=== PATIENT | female | born 1985 | race African-American/Black ===

== ENCOUNTER → 2020-03-23 | Outpatient (CLI) | payer OTHER ==
[~2020-03-23] MED LIST: NIFE-64 PO; OMEP10 PO
[2020-03-23 19:45] LABS: EOSINOPHILS % (AUTO) 1.6 % (1.0-6.0); HEMATOCRIT 40.4 % (36-46); HEMOGLOBIN 13.5 g/dL (12.0-16.0); LYMPHOCYTES # (AUTO) 2.7 K/uL (1.0-4.8); LYMPHOCYTES % (AUTO) 42.8 % (22.0-44.0); MEAN CORPUSCULAR HEMOGLOBIN 29.8 pg (26.0-34.0); MEAN CORPUSCULAR HGB CONC 33.4 G/dL (31.0-37.0); MEAN CORPUSCULAR VOLUME 89 fL (80-100); MONOCYTES # (AUTO) 0.3 K/uL (0.1-1.0); MONOCYTES % (AUTO) 4.8 % (2.0-9.0); NEUTROPHILS # (AUTO) 3.2 K/uL (1.8-7.7); NEUTROPHILS % (AUTO) 49.8 % (40.0-70.0); PLATELET COUNT (AUTO) 363 K/uL (150-450); RED BLOOD CELL COUNT(AUTO) 4.53 MIL/uL (4.00-5.20); RED CELL DISTRIBUTION WIDTH 13.9 % (11.5-14.5)
[2020-03-23 20:22] LABS: ALANINE AMINOTRANSFERASE 45 U/L (12-78); ALBUMIN 4.6 g/dL (3.4-5.0); ALKALINE PHOSPHATASE 87 U/L (46-116); ANION GAP 6 mmol/L (8-16); ASPARTATE AMINOTRANSFERASE 21 U/L (15-37); BILIRUBIN,TOTAL 0.3 mg/dL (0.1-1.0); CALCIUM, TOTAL 9.8 mg/dL (8.8-10.5); CARBON DIOXIDE 26 mmol/L (22-29); CHLORIDE 99 mmol/L (98-107); CREATININE 0.97 mg/dL (0.60-1.30); GLOMERULAR FILTR. RATE CALC > 60 mL/min (>60); GLUCOSE,RANDOM 128 mg/dL (70-110); HCG,QUANTITATIVE < 1 mIU/mL (0-6); POTASSIUM 3.8 mmol/L (3.5-5.1); SODIUM SERUM 131 mmol/L (136-145); THYROID STIMULATING HORMONE 1.75 uIU/mL (0.36-3.74); TOTAL PROTEIN, SERUM 9.2 g/dL (6.4-8.2)
[2020-03-23 20:39] LABS: UREA NITROGEN, BLOOD 13 mg/dL (7-18)
== END | disposition home or self-care (01) ==
LOC: PUC 19:02
DX: R00.0 Tachycardia, unspecified (principal)
CPT/HCPCS: 84436; 84443

== ENCOUNTER 2020-03-24 21:36 | Emergency (ER) | payer OTHER ==
[~2020-03-24] VITALS: Ht 149.9 cm; Wt 66.4 kg
[2020-03-24] MEDS ORDERED: NIFE-64 PO (21:56)
[2020-03-24] MEDS ORDERED: OMEP10 PO (21:56)
[2020-03-25 00:46] LABS: BASOPHILS % (AUTO) 1.1 % (0.0-2.0); EOSINOPHILS % (AUTO) 0.7 % (1.0-6.0); HEMATOCRIT 37.5 % (36-46); HEMOGLOBIN 12.4 g/dL (12.0-16.0); LYMPHOCYTES # (AUTO) 3.3 K/uL (1.0-4.8); MEAN CORPUSCULAR HEMOGLOBIN 29.7 pg (26.0-34.0); MEAN CORPUSCULAR HGB CONC 33.2 G/dL (31.0-37.0); MEAN CORPUSCULAR VOLUME 90 fL (80-100); MONOCYTES # (AUTO) 0.3 K/uL (0.1-1.0); MONOCYTES % (AUTO) 4.2 % (2.0-9.0); NEUTROPHILS # (AUTO) 3.2 K/uL (1.8-7.7); PLATELET COUNT (AUTO) 365 K/uL (150-450); RED BLOOD CELL COUNT(AUTO) 4.18 MIL/uL (4.00-5.20); RED CELL DISTRIBUTION WIDTH 13.8 % (11.5-14.5)
[2020-03-25 00:57] LABS: ANION GAP 8 mmol/L (8-16); CALCIUM, TOTAL 10.2 mg/dL (8.8-10.5); CARBON DIOXIDE 29 mmol/L (22-29); CHLORIDE 102 mmol/L (98-107); CREATININE 0.94 mg/dL (0.60-1.30); GLOMERULAR FILTR. RATE CALC > 60 mL/min (>60); GLUCOSE,RANDOM 114 mg/dL (70-110); POTASSIUM 4.4 mmol/L (3.5-5.1); SODIUM SERUM 139 mmol/L (136-145); UREA NITROGEN, BLOOD 15 mg/dL (7-18)
[2020-03-25] MEDS ORDERED: LORazepam 1 MG TABLET PO ONE (01:00)
[2020-03-25 01:05] VITALS: BP 108/74
[2020-03-25 01:12] LABS: ALANINE AMINOTRANSFERASE 40 U/L (12-78); ALBUMIN 4.1 g/dL (3.4-5.0); ALKALINE PHOSPHATASE 75 U/L (46-116); ASPARTATE AMINOTRANSFERASE 19 U/L (15-37); BILIRUBIN,TOTAL 0.2 mg/dL (0.1-1.0); HCG,QUANTITATIVE < 1 mIU/mL (0-6); THYROID STIMULATING HORMONE 2.26 uIU/mL (0.36-3.74); TOTAL PROTEIN, SERUM 8.2 g/dL (6.4-8.2)
== END 2020-03-25 01:49 | disposition home or self-care (01) ==
LOC: EDUNIT# 21:36 → EMS 21:47
DX: R00.2 Palpitations (principal); I10 Essential (primary) hypertension; Z88.2 Allergy status to sulfonamides; Z88.0 Allergy status to penicillin; Z88.8 Allergy status to other drugs, medicaments and biological substances
CPT/HCPCS: 84443; 93005

== ENCOUNTER 2022-02-19 20:44 | Emergency (ER) | payer OTHER ==
[~2022-02-19] VITALS: Ht 149.9 cm; Wt 65.0 kg
[2022-02-19] MEDS ORDERED: PRED1 PO (21:02)
[2022-02-19] MEDS ORDERED: CARV3 PO (21:02)
[2022-02-19] MEDS ORDERED: METF-1211 PO (21:02)
[2022-02-19] MEDS ORDERED: DOXYCYCLINE HYCLATE 100 MG TABLET PO ONE (22:00)
[2022-02-19] MEDS ORDERED: BACITRACIN 0.9 GM PACKET OINTMENT TP ONE (22:00)
[2022-02-19] MEDS ORDERED: DOXY-354 PO (22:26)
[2022-02-19 22:30] VITALS: BP 132/74
== END 2022-02-19 23:00 | disposition home or self-care (01) ==
LOC: EMS 20:54
DX: L73.2 Hidradenitis suppurativa (principal); I10 Essential (primary) hypertension; K21.9 Gastro-esophageal reflux disease without esophagitis; Z88.0 Allergy status to penicillin; Z88.2 Allergy status to sulfonamides; Z88.5 Allergy status to narcotic agent; Z79.899 Other long term (current) drug therapy
CPT/HCPCS: 99284; Z7502; Z7610

== ENCOUNTER 2022-03-01 00:52 | Emergency (ER) | payer OTHER ==
[~2022-03-01] VITALS: Ht 149.9 cm; Wt 60.3 kg
[~2022-03-01 00:52] MED LIST changes: +CARV3 PO; +DOXY-354 PO; +METF-1211 PO; +PRED1 PO
[2022-03-01 01:39] LABS: BASOPHILS % (AUTO) 0.4 % (0.0-2.0); EOSINOPHILS % (AUTO) 0.3 % (1.0-6.0); HEMATOCRIT 31.9 % (36-46); HEMOGLOBIN 10.5 g/dL (12.0-16.0); LYMPHOCYTES # (AUTO) 3.6 K/uL (1.0-4.8); LYMPHOCYTES % (AUTO) 30.2 % (22.0-44.0); MEAN CORPUSCULAR HEMOGLOBIN 27.9 pg (26.0-34.0); MEAN CORPUSCULAR VOLUME 85 fL (80-100); MONOCYTES # (AUTO) 0.8 K/uL (0.1-1.0); MONOCYTES % (AUTO) 6.9 % (2.0-9.0); NEUTROPHILS # (AUTO) 7.4 K/uL (1.8-7.7); NEUTROPHILS % (AUTO) 62.2 % (40.0-70.0); PLATELET COUNT (AUTO) 351 K/uL (150-450); RED BLOOD CELL COUNT(AUTO) 3.77 MIL/uL (4.00-5.20); RED CELL DISTRIBUTION WIDTH 15.8 % (11.5-14.5)
[2022-03-01 01:46] LABS: GLUCOMETER DEV NAME(LOC) ERT.5; GLUCOSE,POINT OF CARE 114 MG/DL (70-110)
[2022-03-01 01:49] LABS: ANION GAP 6 mmol/L (8-16); CALCIUM, TOTAL 8.8 mg/dL (8.8-10.5); CARBON DIOXIDE 32 mmol/L (22-29); CHLORIDE 102 mmol/L (98-107); CREATININE 0.77 mg/dL (0.60-1.30); GLOMERULAR FILTR. RATE CALC > 60 mL/min (>60); GLUCOSE,RANDOM 123 mg/dL (70-110); POTASSIUM 4.3 mmol/L (3.5-5.1); SODIUM SERUM 140 mmol/L (136-145); UREA NITROGEN, BLOOD 18 mg/dL (7-18)
[2022-03-01 02:00] LABS: ALANINE AMINOTRANSFERASE 35 U/L (12-78); ALKALINE PHOSPHATASE 70 U/L (46-116); ASPARTATE AMINOTRANSFERASE 13 U/L (15-37); BILIRUBIN,TOTAL 0.2 mg/dL (0.1-1.0); HCG,QUANTITATIVE < 1 mIU/mL (0-6); PHOSPHORUS 2.3 mg/dL (2.5-4.9); TOTAL PROTEIN, SERUM 7.1 g/dL (6.4-8.2)
[2022-03-01] MEDS ORDERED: SODIUM,POTASSIUM PHOSPHATES POWDER PACKET PO ONE (02:15)
[2022-03-01 03:29] VITALS: BP 124/76
== END 2022-03-01 03:34 | disposition home or self-care (01) ==
LOC: EMS 00:52
DX: R00.2 Palpitations (principal); K21.9 Gastro-esophageal reflux disease without esophagitis; I10 Essential (primary) hypertension; Z88.0 Allergy status to penicillin; Z88.1 Allergy status to other antibiotic agents; Z79.84 Long term (current) use of oral hypoglycemic drugs
CPT/HCPCS: 80053; 82962; 83735; 84100; 84484; 84702; 85025; 93005; 99284

== ENCOUNTER 2022-03-04 13:59 | Emergency (ER) | payer OTHER ==
[~2022-03-04] VITALS: Ht 149.9 cm; Wt 60.0 kg
[2022-03-04] MEDS ORDERED: ISOT30CA14 PO (14:01)
[2022-03-04 16:20] VITALS: BP 120/75
== END 2022-03-04 16:37 | disposition home or self-care (01) ==
LOC: EMS 14:02
DX: R04.0 Epistaxis (principal); R05.9 Cough, unspecified; I10 Essential (primary) hypertension; K21.9 Gastro-esophageal reflux disease without esophagitis; Z88.0 Allergy status to penicillin; Z88.2 Allergy status to sulfonamides; Z88.8 Allergy status to other drugs, medicaments and biological substances; Z79.84 Long term (current) use of oral hypoglycemic drugs; Z79.899 Other long term (current) drug therapy
CPT/HCPCS: 71046; 99283

== ENCOUNTER 2022-04-23 20:00 | Emergency (ER) | payer OTHER ==
[~2022-04-23] VITALS: Ht 149.9 cm; Wt 60.5 kg
[~2022-04-23 20:00] MED LIST changes: -DOXY-354 PO; +ISOT30CA14 PO
[2022-04-23 20:15] VITALS: BP 122/76
[2022-04-23] MEDS ORDERED: DOXY-354 PO (22:30)
== END 2022-04-23 22:35 | disposition home or self-care (01) ==
LOC: EMS 20:01
DX: L73.2 Hidradenitis suppurativa (principal); F41.9 Anxiety disorder, unspecified; L70.9 Acne, unspecified; I10 Essential (primary) hypertension; K21.9 Gastro-esophageal reflux disease without esophagitis; Z88.0 Allergy status to penicillin; Z88.2 Allergy status to sulfonamides; Z79.899 Other long term (current) drug therapy
CPT/HCPCS: 82948; 99283